=== PATIENT | male | born 1990 | race Caucasian/White ===

== ENCOUNTER 2019-09-12 11:36 | Emergency (ER) | payer SELFPAY | END 2019-09-12 12:10 | disposition home or self-care (01) | LOC: ERS 11:36 | DX: L30.9 Dermatitis, unspecified (principal); F41.9 Anxiety disorder, unspecified; F32.9 Major depressive disorder, single episode, unspecified; F17.220 Nicotine dependence, chewing tobacco, uncomplicated | CPT/HCPCS: 99282 ==

== ENCOUNTER 2019-09-25 11:57 | Emergency (ER) | payer SELFPAY ==
[2019-09-25] MEDS ORDERED: Dexamethasone 10 MG/ML VIAL ONE (12:32)
== END 2019-09-25 12:45 | disposition home or self-care (01) ==
LOC: ERS 11:57
DX: L30.1 Dyshidrosis [pompholyx] (principal); L03.115 Cellulitis of right lower limb; J30.9 Allergic rhinitis, unspecified
CPT/HCPCS: 99282; J1100